=== PATIENT | male | born 1995 | race Caucasian/White ===

== ENCOUNTER 2021-11-07 12:55 | Emergency (ER) | payer OTHER ==
[~2021-11-07] VITALS: Ht 175.3 cm; Wt 81.7 kg
[2021-11-07] MEDS ORDERED: MEDROLDOSEPACK PO (13:55)
[2021-11-07] MEDS ORDERED: NORFLEX100 MG PO (13:55)
[2021-11-07 14:14] VITALS: BP 131/81
== END 2021-11-07 14:14 | disposition home or self-care (01) ==
LOC: M.ERS 12:55
DX: M54.50 Low back pain, unspecified (principal); F12.90 Cannabis use, unspecified, uncomplicated